=== PATIENT | female | born 1985 | race Caucasian/White ===

== ENCOUNTER 2020-04-27 21:51 | Emergency (ER) | payer SELFPAY ==
[~2020-04-27] VITALS: Ht 165.1 cm; Wt 82.0 kg
[2020-04-27 21:55] VITALS: BP 116/75
== END 2020-04-27 22:20 | disposition left against medical advice (07) ==
LOC: ER 21:51
DX: R51.9 Headache, unspecified (principal)
CPT/HCPCS: 99283